=== PATIENT | male | born 1985 | race Caucasian/White ===

== ENCOUNTER 2018-12-10 15:33 | Emergency (ER) | payer OTHER ==
[~2018-12-10] VITALS: Ht 167.6 cm; Wt 106.6 kg
[~2018-12-10 15:33] MED LIST: ACHD5005 PO; CEPH500C PO
[2018-12-10] MEDS ORDERED: ONDANSETRON 4 MG/2 ML (SDV) Z0FRAN ONE (15:36)
[2018-12-10] MEDS ORDERED: fentaNYL INJECTION 100 MCG/2 ML AMP ONE (15:37)
--- NOTE | 2018-12-10 15:44 | ED Upper Extremity ---
General Stated Complaint: LT HAND INJ History of Present Illness Date Seen by Provider: Dec 10, 2018 Time Seen by Provider: 15:42 Initial Comments Patient presenting to emergency department for evaluation of left thumb almost complete amputation sustained approximately 30 minutes prior to arrival. He was drilling a hole and his glove got caught in the drill bit and his hand wrapped around the drill bit. On arrival patient's thumb is stuck inside the glove and it was removed it appears that his extensor tendon is intact and a small flap of skin is well but his left thumb is pale and white with no Refill or sensation. He says that he is healthy and takes no medications and his tetanus is within the last 2 years. He says that he recently took up smoking again. He has no other injuries and he is uncomfortable but is nontoxic. Allergies and Home Medications Allergies Coded Allergies: No Known Drug Allergies (Unverified , 04/18/11) Home Medications Cephalexin Monohydrate 500 Mg Capsule, 1 EACH PO QID Prescribed by: YOMAIRA HYATT on 04/18/111658 Hydrocodone Bit/Acetaminophen 1 Each Tablet, 1-2 EACH PO Q6H PRN Prescribed by: YOMAIRA HYATT on 04/18/111658 Patient Home Medication List Home Medication List Reviewed: Yes Review of Systems Constitutional: no symptoms reported Musculoskeletal: joint pain Psychiatric/Neurological: Numbness All Other Systems Reviewed Negative Unless Noted: Yes Past Lxljxjk-Nedduy-Vnjapd Hx Patient Social History Recent Foreign Travel: No Contact w/Someone Who Travel: No Physical Exam Vital Signs Vital Signs - First Documented 12/10/18 15:35 Temp 96.9 Pulse 56 Resp 16 B/P (MAP) 151/90 (110) Pulse Ox 100 O2 Delivery Room Air Capillary Refill : Height, Weight, BMI Height: '" Weight: lbs. oz. kg; BMI Method: General Appearance: WD/WN, no apparent distress HEENT: PERRL/EOMI Neck: non-tender Cardiovascular: regular rate, rhythm Respiratory: lungs clear Gastrointestinal: soft Back: normal inspection Wrist: Yes pain (pain with palpation and range of motion of left wrist.) Hand: Left (and left thumb with no sensation or blood flow refill however his extensor tendon is intact but his flexor tendon appears to be intact but is somehow pulled from the proximal source from what I can gather.) Neurologic/Tendon: sensory deficit, tendon injury visualized Skin: other (large open wound left hand with bone exposed) Progress/Results/Core Measures Results/Orders Lab Results Laboratory Tests Test 12/10/18 15:43 Range/Units White Blood Count 13.9 H 4.3-11.0 10^3/uL Red Blood Count 4.95 4.35-5.85 10^6/uL Hemoglobin 15.2 13.3-17.7 G/DL Hematocrit 44 40-54 % Mean Corpuscular Volume 90 80-99 FL Mean Corpuscular Hemoglobin 31 25-34 PG Mean Corpuscular Hemoglobin Concent 34 32-36 G/DL Red Cell Distribution Width 13.0 10.0-14.5 % Platelet Count 259 130-400 10^3/uL Mean Platelet Volume 11.6 H 7.4-10.4 FL Neutrophils (%) (Auto) 55 42-75 % Lymphocytes (%) (Auto) 34 12-44 % Monocytes (%) (Auto) 10 0-12 % Eosinophils (%) (Auto) 1 0-10 % Basophils (%) (Auto) 0 0-10 % Neutrophils # (Auto) 7.7 1.8-7.8 X 10^3 Lymphocytes # (Auto) 4.7 H 1.0-4.0 X 10^3 Monocytes # (Auto) 1.4 H 0.0-1.0 X 10^3 Eosinophils # (Auto) 0.2 0.0-0.3 10^3/uL Basophils # (Auto) 0.0 0.0-0.1 10^3/uL Prothrombin Time 13.6 12.2-14.7 SEC INR Comment 1.0 0.8-1.4 Activated Partial Thromboplast Time 34 24-35 SEC Sodium Level 137 135-145 MMOL/L Potassium Level 3.4 L 3.6-5.0 MMOL/L Chloride Level 99 98-107 MMOL/L Carbon Dioxide Level 22 21-32 MMOL/L Anion Gap 16 H 5-14 MMOL/L Blood Urea Nitrogen 13 7-18 MG/DL Creatinine 0.71 0.60-1.30 MG/DL Estimat Glomerular Filtration Rate > 60 BUN/Creatinine Ratio 18 Glucose Level 108 H 70-105 MG/DL Calcium Level 9.3 8.5-10.1 MG/DL Corrected Calcium 8.5-10.1 MG/DL Total Bilirubin 0.5 0.1-1.0 MG/DL Aspartate Amino Transf (AST/SGOT) 21 5-34 U/L Alanine Aminotransferase (ALT/SGPT) 24 0-55 U/L Alkaline Phosphatase 85 40-136 U/L Total Protein 8.2 6.4-8.2 GM/DL Albumin 4.9 H 3.2-4.5 GM/DL My Orders Orders - RUTH HOWARD DO Cbc With Automated Diff (12/10/18 15:38) Comprehensive Metabolic Panel (12/10/18 15:38) Partial Thromboplastin Time (12/10/18 15:38) Protime With Inr (12/10/18 15:38) Hand 2 View Left (12/10/18 15:38) Ondansetron Injection (Zofran Injectio (12/10/18 15:45) Fentanyl Injection (Sublimaze Injection (12/10/18 15:45) Ondansetron Injection (Zofran Injectio (12/10/18 15:36) Fentanyl Injection (Sublimaze Injection (12/10/18 15:37) Cefazolin 2 Gm/50 Ml Ns (Ancef 2 Gm/50 M (12/10/18 15:45) Cefazolin Injection (Ancef Injection) (12/10/18 15:49) Ns (Ivpb) (Sodium Chloride 0.9% Ivpb Bag (12/10/18 15:49) Hydromorphone Injection (Dilaudid Inject (12/10/18 16:00) Hydromorphone Injection (Dilaudid Inject (12/10/18 16:30) Medications Given in ED Current Medications Medications Dose Ordered Sig/Darrell Route Start Time Stop Time Status Last Admin Dose Admin Cefazolin Sodium 50 ml @ 140 mls/hr ONCE ONCE IV 12/10/18 15:45 12/10/18 16:06 DC 12/10/18 16:00 140 MLS/HR Fentanyl Citrate 100 mcg ONCE ONCE IVP 12/10/18 15:45 12/10/18 15:46 DC 12/10/18 15:45 100 MCG Hydromorphone HCl 1.5 mg ONCE ONCE IVP 12/10/18 16:00 12/10/18 16:01 DC 12/10/18 16:00 1.5 MG Ondansetron HCl 4 mg ONCE ONCE IVP 12/10/18 15:45 12/10/18 15:46 DC 12/10/18 15:45 4 MG Vital Signs/I&O 12/10/18 15:35 Temp 96.9 Pulse 56 Resp 16 B/P (MAP) 151/90 (110) Pulse Ox 100 O2 Delivery Room Air Progress Progress Note : Progress Note Patient has near complete amputation of left thumb with no sensation. I initially tried calling [facility] however they were unable to get a hold of their hand surgeon untimely manner so then I spoke to [facility] and they were willing to accept patient for possible attempt at reimplantation. I told patient that these are quite difficult complex procedures in the success rate is relatively low but it is his best chance at possible function of his left thumb. Patient's thumb was placed in wet 4 x 4 wraps and then put on ice. Patient was started on Ancef given fentanyl for pain in addition to 2 doses of Dilaudid. Given how time critical this condition is helicopter will be used for transportation. Critical care time of 38 minutes. Departure Impression Primary Impression: Amputation of left thumb with complication Qualified Codes: S68.012A - Complete traumatic metacarpophalangeal amputation of left thumb, initial encounter Disposition: 02 XFER SHT-TRM HOSP Condition: Improved Departure-Patient Inst. Referrals: NO,LOCAL PHYSICIAN (PCP/Family) Primary Care Physician RUTH HOWARD DO Dec 10, 2018 15:44
[2018-12-10] MEDS ORDERED: ONDANSETRON 4 MG/2 ML (SDV) Z0FRAN IVP ONE (15:45)
[2018-12-10] MEDS ORDERED: fentaNYL INJECTION 100 MCG/2 ML AMP IVP ONE (15:45)
[2018-12-10] MEDS ORDERED: ceFAZolin 2 GM/50 ML NS 50 ML IV ONE (15:45)
[2018-12-10] MEDS ORDERED: ceFAZolin INJECTION 2,000 MG ONE (15:49)
[2018-12-10] MEDS ORDERED: NS (IVPB) 50 ML ONE (15:49)
[2018-12-10] MEDS ORDERED: HYDROmorphone 2 MG/ML VIAL (DILAUDID) IVP ONE ×2 (16:00→16:30)
--- NOTE | 2018-12-10 16:00 | NUR ---
Maya sandy in ED - 12/10/18 at 1631 by [id number] Pt's right thumb was irrigated/cleaned with with sterile water. Moist gauze was applied to thumb and set on top of ice and ice applied to top of thumb.
--- NOTE | 2018-12-10 16:00 | NUR ---
Pt's left thumb was irrigated/cleaned with with sterile water. Moist gauze was applied to thumb and set on top of ice and ice applied to top of thumb.
[2018-12-10 16:02] LABS: WHITE BLOOD COUNT 13.9 10^3/uL (4.3-11.0)
[2018-12-10 16:03] LABS: BASOPHILS % (AUTO) 0 % (0-10); EOSINOPHILS # (AUTO) 0.2 10^3/uL (0.0-0.3); EOSINOPHILS % (AUTO) 1 % (0-10); HEMATOCRIT 44 % (40-54); HEMOGLOBIN 15.2 G/DL (13.3-17.7); LYMPHOCYTES # (AUTO) 4.7 X 10^3 (1.0-4.0); LYMPHOCYTES % (AUTO) 34 % (12-44); MEAN CORPUSCULAR HEMOGLOBIN 31 PG (25-34); MEAN CORPUSCULAR HGB CONC 34 G/DL (32-36); MEAN CORPUSCULAR VOLUME 90 FL (80-99); MEAN PLATELET VOLUME 11.6 FL (7.4-10.4); MONOCYTES # (AUTO) 1.4 X 10^3 (0.0-1.0); MONOCYTES % (AUTO) 10 % (0-12); NEUTROPHILS # (AUTO) 7.7 X 10^3 (1.8-7.8); NEUTROPHILS % (AUTO) 55 % (42-75); PLATELET COUNT 259 10^3/uL (130-400)
--- NOTE | 2018-12-10 16:10 | Diagnostic Imaging Report ---
INDICATION: Injury to left hand. EXAMINATION: AP and lateral views of the left hand were obtained at 3:54 p.m. FINDINGS: There is amputation of the left thumb at the level of the MCP joint. There is no associated fracture fragment. There are tiny radiopaque densities in the soft tissues. Remaining bony structures are intact. IMPRESSION: Near-complete amputation of the left thumb with dislocation at the level of the MCP joint. Tiny radiopaque densities in the soft tissues are noted. Dictated by: Dictated on workstation # [id number]
[2018-12-10 16:11] LABS: PROTHROMBIN TIME PATIENT 13.6 SEC (12.2-14.7)
[2018-12-10 16:12] LABS: CARBON DIOXIDE 22 MMOL/L (21-32); CHLORIDE 99 MMOL/L (98-107); POTASSIUM 3.4 MMOL/L (3.6-5.0); SODIUM 137 MMOL/L (135-145)
[2018-12-10 16:13] LABS: ALANINE AMINOTRANSFERASE 24 U/L (0-55); ALBUMIN 4.9 GM/DL (3.2-4.5); ALKALINE PHOSPHATASE 85 U/L (40-136); BILIRUBIN,TOTAL 0.5 MG/DL (0.1-1.0); BUN/CREATININE RATIO 18; CALCIUM 9.3 MG/DL (8.5-10.1); CREATININE SERUM 0.71 MG/DL (0.60-1.30); GFR ESTIMATED > 60; GLUCOSE 108 MG/DL (70-105); TOTAL PROTEIN 8.2 GM/DL (6.4-8.2)
--- NOTE | 2018-12-10 16:34 | NUR ---
Jean Marie Norwood called and stated that ETA was 15 minutes.
--- NOTE | 2018-12-10 16:35 | NUR ---
Jennifer with [facility] transfer team called and requested for images to be clouded and to send a disk with the pt.
[2018-12-10] MEDS ORDERED: TETANUS,DIPTH,PERTUSS P/F (BOOSTRIX) 0.5 ML VIAL IM ONE ×2 (16:37→16:45)
[2018-12-10 16:55] VITALS: BP 159/88
--- NOTE | 2018-12-10 19:48 | NUR ---
1612: [place] Tam[facility] called for weather check. 1616: Helicopter on standby, will be 22 minute ETA once helicopter has launched. 1620: [facility] has accepted patient. 1622: Helicopter has launched.
--- OUTSIDE RECORDS SUMMARY | 2018-12-10 22:09 | XMS REPORT ---
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 Active 77884267 ALLERGIES No Known Allergies SOCIAL HISTORY Never Assessed PLAN OF CARE Activity Details Follow Up prn Reason:PROPHY VITAL SIGNS Height 67 in 2016-08-09 Blood pressure systolic 128 mmHg 2016-08-09 Blood pressure diastolic 83 mmHg 2016-08-09 MEDICATIONS Medication Instructions Dosage Frequency Start Date End Date Duration Status Prozac 60 mg Orally Once a day 1 capsule in the morning 24h 90 days Active Amoxicillin 500 MG Orally every 8 hrs 1 tablet 8h 23 Jul, 2016 7 days Active RESULTS No Results PROCEDURES Procedure Date Ordered Result Body Site LTD ORAL EVALUATION - PROBLEM FOCUS Aug 09, 2016 INTRAORL-PERIAPICAL 1 FILM [id number] Aug 09, 2016 BITEWING - SINGLE FILM Aug 09, 2016 IMMUNIZATIONS No Known Immunizations MEDICAL (GENERAL) HISTORY Type Description Date Medical History depression Medical History anxiety Surgical History hernia repair, umbilical 1998 Surgical History toe surgery 1996 Hospitalization History mental illness 1995
== END 2018-12-10 17:00 | disposition short-term general hospital (02) ==
LOC: EDUNIT# 15:33 → ER FS 15:34
DX: S68.012A Complete traumatic metacarpophalangeal amputation of left thumb, initial encounter (principal); W31.1XXA Contact with metalworking machines, initial encounter
CPT/HCPCS: 36415; 73120; 80053; 85025; 85610; 85730; 90471; 90715; 96374; 96375; 96376